=== PATIENT | male | born 1940 | race Caucasian/White ===

== ENCOUNTER 2017-07-02 22:32 | Inpatient (IN) | payer OTHER ==
[~2017-07-02] VITALS: Ht 172.7 cm; Wt 72.6 kg
--- NOTE | ~2017-07-02 | CNG ---
[facility] [place] [address] CYTO-NONGYN REPORT PROCEDURE Name: KEVIN CARVER Room #: 242-P ADM IN M.R.#: [id number] Admission: 07/03/17 Date of : 44 Discharge: Report #: [id number] Path Case #: [id number] CYTOPATHOLOGY REPORT COLLECTION DATE: 07/03/2017 RECEIVED DATE: 07/03/2017 SUBMITTING PHYS: Dr. Jacinto Salazar OTHER PHYS: Dr. Alfonso Dillard CLINICAL HISTORY: Cardio/Respiratory arrest, Pleural effusion. SPECIMEN(S) RECEIVED: A.Pleural fluid * * * * * * * * * * * * FINAL DIAGNOSIS: A. Pleural fluid: - No malignant epithelial cells identified. Occasional mesothelial cells and acute and chronic inflammatory cells, including occasional eosinophils and scattered lymphocytes, are present in a background of debris. PATHOLOGIST: Louisa Pereira M.D. REPORT ELECTRONICALLY SIGNED BY: Louisa Pereira M.D. DATE/TIME: 07/04/2017 11:21 * * * * * * * * * * * * GROSS PATHOLOGY: A. Pleural fluid: The specimen is submitted unfixed, labeled "Kevin Carver". Received by the Cytology Department is 35 mL of clear yellow fluid. One ThinPrep slide and a formalin fixed cell block were prepared. (clt 07.03.2017) FIRE LOSS PREVENTION ENGINEER(S): BERTHA Archer([facility]) INITIAL CPT CODE(S): A; 83459, 64023 Professional services performed by [facility] at [facility] [address], [place] [address] Technical services performed by [facility] at [address] [place] [address]., [address], [place] [address]. [facility] [address] [place] [address] CYTO-NONGYN REPORT PROCEDURE Name: KEVIN CARVER Room #: 242-P ADM IN M.R.#: [id number] Admission: 07/03/17 Date of : 44 Discharge: Report #: [id number] Path Case #: [id number] [place] [address] [address] [place] [address] PHONE: [phone] DIRECTOR: Srinivas Arzola M.D. * * * END OF REPORT * * *
--- NOTE | ~2017-07-02 | 2DMMODE ---
[facility] [address] [place] [address] 2 D/M-MODE ECHOCARDIOGRAM Name: KEVIN FITZGERALD Room #: 242-P ADM IN M.R.#: [id number] Admission: 07/03/17 Attend Phys: Alfonso Cardoza, Discharge: Date of : 44 Date of Service: 07/03/17 1209 Report #: [id number] THIS REPORT FOR: //name// APPROVED REPORT Study performed: 07/03/2017 10:24:00 EXAM: Comprehensive 2D, Doppler, and color-flow Echocardiogram Patient Location: ICU Room #: 242 Status: routine BSA: 1.86 HR: 71 bpm BP: 100/60 mmHg Other Information Study Quality: Fair Indications Congestive Heart Failure CVA/TIA Diabetes Hypertension/HDD S^P Cardiopulmonary arrest Echo Enhancing Agent Indication: Rule out Shunt Agent(s) / Amount(s) Used: Agitated Saline 7 cc 2D Dimensions LVEF(%): 20.04 (>50%) IVSd: 9.97 (7-11mm) LVOT Diam: 18.76 (18-24mm) LVDd: 42.57 mm PWd: 9.97 (7-11mm) Ascending Ao: 29.16 (22-36mm) LVDs: 38.74 (25-40mm) Aortic Root: 27.05 mm IVC: 21.00 mm Benoit's LVEF: 20.04 % Aortic Valve AoV Peak Shalom.: 0.95 m/s AO Peak Gr.: 3.59 mmHg LVOT Max P.02 mmHg LVOT Max V: 0.71 m/s TEDDY Vmax: 2.07 cm2 Mitral Valve [facility] [address] [place] [address] 2 D/M-MODE ECHOCARDIOGRAM Name: KEVIN FITZGERALD Room #: 242-P ADM IN ..#: [id number] Admission: 07/03/17 Attend Phys: Alfonso Cardoza, Discharge: Date of : 44 Date of Service: 07/03/17 1209 Report #: [id number] MV Decel. Time: 153.36 ms MV E Max Shalom.: 0.93 m/s Pulmonary Valve PV Peak Shalom.: 0.70 m/s PV Peak Gr.: 1.98 mmHg Tricuspid Valve TR Peak Shalom.: 3.40 m/s TR Peak Gr.: 46.18 mmHg PA Pressure: 56.00 mmHg Left Ventricle The left ventricle is normal size. Possible global hypokinesis of the left ventricle. There is normal left ventricular wall thickness. Very limited assessement of global and regional systolic function. Possible mild-moderate global dysfunction, although this could be artifactual due to inability to see endocardium. This study is not technically sufficient to allow evaluation of the LV diastolic function. Right Ventricle The right ventricle is normal size. The right ventricular systolic function is normal. Atria Left atrium is dilated. No shunting by contrast bubble injection Right atrium is dilated. Aortic Valve Aortic valve is mildly calcified. No aortic regurgitation is present. There is no aortic valvular stenosis. Mitral Valve Mild mitral annular calcification Mild mitral regurgitation. No evidence of mitral valve stenosis. Tricuspid Valve The tricuspid valve is normal in structure. There is mild tricuspid regurgitation. The right atrial pressure is estimated at mmHg. There is moderate pulmonary hypertension. Estimated PAP was 55 mmHg. Pulmonic Valve The pulmonary valve is normal in structure. Trace pulmonic regurgitation. [facility] [address] [address] 2 D/M-MODE ECHOCARDIOGRAM Name: KEVIN FITZGERALD Room #: 242-P [facility] IN .R.#: [id number] Admission: 07/03/17 Attend Phys: Alfonso Cardoza, Discharge: Date of : 44 Date of Service: 07/03/17 1209 Report #: [id number] Great Vessels The aortic root is normal in size. IVC is dilated and collapses <50% with inspiration. Pericardium Trace pericardial effusion. <Conclusion> Limited study Very limited assessement of global and regional systolic function. Possible mild-moderate global dysfunction, although this could be artifactual due to inability to see endocardium. Both atria mildly enlarged No shunting by contrast bubble injection Aortic valve is mildly sclerotic. No aortic regurgitation or stenosis. Mild mitral annular calcification. Mild mitral regurgitation. Pulmonary artery pressure of 55mmHg Trace pericardial effusion. Pleural effusions seen <ELECTRONICALLY SIGNED> By: Amarjit Morel MD, [facility] 07/03/171208 08 08 Amarjit Morel MD, [facility] /INF
--- NOTE | ~2017-07-02 | EKG ---
[address] [place] [address] ELECTROCARDIOGRAM REPORT Name: KEVIN FITZGERALD Room #: 242-P ADM IN M.R.#: [id number] Admission: 07/03/17 Attend Phys: Alfonso Cardoza DO Discharge: Date of : 44 Report #: [id number] THIS REPORT FOR: //name// [facility] ED Test Date: 2017-07-02 Test Time: 22:42:19 Pat Name: KEVIN FITZGERALD Department: Room: 242 Gender: M [employer] Tester: MIKHAIL : 1940 Requested By: Hortencia Moreno Order Number: [id number] MD: Amarjit Morel Measurements Intervals Rosine Rate: 62 P: NE: QRS: 24 QRSD: 96 T: QT: 465 QTc: 473 Interpretive Statements Possible sinus bradycardia with atrial premature complexes Low voltage, extremity leads Borderline repolarization abnormality No previous ECG available for comparison Electronically Signed On 07-03-2017 8:30:44 CDT by Amarjit Morel [email or web address] <ELECTRONICALLY SIGNED> By: Amarjit Morel MD, [facility] 07/03/17 0830 2242 41 Amarjit Morel MD, FACC /EPI
--- NOTE | ~2017-07-02 | HC ---
[facility] [place] [address] CONSULTATION Name: KEVIN FITZGERALD Room #: 242-P [facility] IN M.R.#: [id number] Admission: 07/03/17 Attend Phys: Viry Garibay Discharge: Date of : 44 Report #: [id number] THIS REPORT FOR: //name// CC: Alfonso Dillard REFERRAL PHYSICIAN: Alfonso Cardoza DO REASON FOR REFERRAL: Cardiopulmonary arrest. HISTORY OF PRESENT ILLNESS: The patient is a 77-year-old white male who was transferred from [facility] following a cardiac arrest. A pulmonary consultation was requested. According to records, the patient has been at [facility] for treatment of MRSA bacteremia. The patient also has decubitus wounds along with apparent osteomyelitis. The patient had been on vancomycin and meropenem. [facility]. According to records, the patient was found to be unresponsive last evening. Paramedics were called. The patient was brought to the emergency room. He was intubated to control the airways. According to Dr. Hortencia Moreno, the patient did not have significant neurologic response during the intubation. He did not require any sedation. Chest x-ray showed bilateral pleural effusions. CT chest was negative for pulmonary embolus. Moderate bilateral pleural effusion is noted with possible left lower lobe infiltrates. CT head was grossly unremarkable. Presently, the patient is obtunded, unresponsive. His eyes are open with eyes deviated to the right upper quadrant. PAST MEDICAL HISTORY: As mentioned above. Record also shows a history of coronary artery disease with myocardial infarction in April 2017, hypertension, hyperlipidemia, diabetes mellitus type 2, stage III sacral wound, urinary retention, MRSA bacteremia with sepsis. ALLERGIES: To IODINE, reactions unspecified. MEDICATIONS: From the facility are reviewed. This include iron supplements, vitamin C, Bactroban, Suki aspirin, Lipitor, Coreg, Plavix, Levemir, magnesium sulfate, meropenem 500 mg IV q.6 hours, multivitamins, Protonix, MiraLax, Xarelto, Senna, Flomax, vancomycin 750 mg IV daily, nebulized albuterol, guaifenesin, and ketorolac. FAMILY HISTORY: Unknown. [facility] [address] [place] [address] CONSULTATION Name: KEVIN FITZGERALD Room #: 242-P [facility] IN M.R.#: [id number] Admission: 07/03/17 Attend Phys: Viry Garibay Discharge: Date of : 44 Report #: [id number] SOCIAL HISTORY: Unknown. REVIEW OF SYSTEMS: Unable to be obtained given current neurologic changes. PHYSICAL EXAMINATION: GENERAL: As mentioned above, he is unresponsive to deep sternal rub. His eyes are deviated to the right upper quadrant. VITAL SIGNS: Temperature is 96.5 degrees Fahrenheit, pulse is 62, respiratory rate is 20, blood pressure was as low as 70 mmHg systolic in the emergency room. Currently, 75 mmHg and saturation 100%. HEENT: Normocephalic, atraumatic. Pupils again deviated to the right upper quadrant bilaterally. He is orally intubated. NECK: Supple without any lymphadenopathy or thyromegaly. CHEST: Breath sounds are clear anteriorly. CARDIOVASCULAR: Irregular. No obvious murmurs or gallops. Pulses are 2+/4+ bilaterally. ABDOMEN: Soft, nontender, no organomegaly or masses felt. GENITOURINARY: Deferred. RECTAL: Deferred. EXTREMITIES: No cyanosis, clubbing, or edema. LABORATORY DATA: Chest x-ray again shows moderate bilateral pleural effusion confirmed by CT chest angiogram. A pulmonary embolus was not noted. CT head again shows no acute changes. Procalcitonin is 1.34. BNP is elevated. Sodium 143, potassium 3.6, chloride 113, CO2 is 20, BUN is 37, creatinine is 1.1, it was 1.3 on admission; and glucose 129. Liver function profile mildly elevated. Albumin 1.5. WBC 8100, hemoglobin 7.3, platelets are normal, no evidence of significant bandemia. MCV and MCH are normal. Arterial blood gas revealed pH 7.39, pCO2 of 37, pO2 of 96 on FIO2 of 60%. IMPRESSION: 1. Cardiopulmonary arrest in this 77-year-old white male. It is unclear to the duration of time being down. Etiology is unclear at this time. The patient was hypotensive on arrival to the ER. He has been treated for methicillin-resistant Staphylococcus aureus sepsis with bacteremia along with sacral wounds and possible osteomyelitis. Etiology may be related to ongoing sepsis leading to hypotension than cardiopulmonary arrest. Unclear if the patient has cerebrovascular accident or anoxic brain injury. 2. Acute hypoxic respiratory failure due to above processes. 3. Encephalopathy, presently the patient is obtunded. Concerns for anoxic or hypoxic brain injury. 4. Possible left lower lobe infiltrate, moderate bilateral pleural effusion. Bilateral effusion likely suggests heart failure or other transudative processes. However, with elevated Procalcitonin, cannot rule out nosocomial [facility] [address] [place] [address] CONSULTATION Name: KEVIN FITZGERALD Room #: 242-P [facility] IN M.R.#: [id number] Admission: 07/03/17 Attend Phys: Viry Garibay Discharge: Date of : 44 Report #: [id number] infections. 5. Recent diagnosis of methicillin-resistant Staphylococcus aureus sepsis, bacteremia, sacral wound with ? osteomyelitis. 6. Coronary artery disease with myocardial infarction in April 2017. 7. Diabetes mellitus type 2. 8. Anemia. 9. Severe protein-calorie malnutrition. 10. Acute kidney injury due to hypotension leading to acute tubular necrosis. 11. Hypotension, likely due to severe septic shock, much improved with IV fluids. RECOMMENDATION: We will continue mechanical ventilation. Given the clinical presentation, we will proceed with diagnostic thoracentesis especially on the left to rule out complicated pleural effusion including empyema. Continue broad-spectrum antibiotics for his recent MRSA bacteremia along with possible pneumonia. Agree with neurology consultation regarding encephalopathy. Concerns for profound anoxic brain injury. Because we do not have a rhythm, I am not certain if the patient qualifies for hypothermic protocol at this time. Overnight, the patient has urine output. It has improved with a low dose Lasix along with IV fluids. His hypotension is likely related to severe sepsis along with intravascular volume depletion. Continue volume replacement for now. Note that renal function has improved. Continue aggressive support. If neurologic status does not improve over the next 72 hours or so, may need to address medical directive. Thank you for this consultation. <ELECTRONICALLY SIGNED> By: Jacinto Salazar MD 07/05/17 1233 0926 1142 Jacinto Salazar MD /nt
[2017-07-02 22:35] VITALS: BP 99/65
[2017-07-02 22:57] LABS: ABSOLUTE NEUTROPHILS 6.4 thou/uL (1.4-8.2); BASOPHILS 0.6 % (0.0-2.0); HEMATOCRIT 21.4 % (42.0-52.0); HEMOGLOBIN 7.3 gm/dL (14.0-18.0); LYMPHOCYTES 12.2 % (24.0-44.0); MCH 30.5 pg (26.0-34.0); MCHC 33.9 g/dL (28.0-37.0); MCV 89.9 fL (80.0-100.0); MONOCYTES 7.8 % (1.0-8.0); PLATELET COUNT 320 thou/uL (150-400); POLYS 78.4 % (36.0-66.0); RBC 2.38 mil/uL (4.50-6.00); RDW 16.1 % (10.5-14.5); WBC 8.1 thou/uL (4.0-11.0)
[2017-07-02 22:59] LABS: MANUAL DIFF NO
[2017-07-02 23:00] LABS: CALCIUM 9.1 mg/dL (8.5-10.1); CREATININE 1.3 mg/dL (0.7-1.3); POTASSIUM 4.6 mmol/L (3.5-5.1)
[2017-07-02] MEDS ORDERED: IRON325 PO (23:08)
[2017-07-02 23:09] LABS: TROPONIN-I 0.1 ng/mL (<0.04-0.07)
[2017-07-02] MEDS ORDERED: BACTROBAN15 GM TOP (23:09)
[2017-07-02] MEDS ORDERED: VITAMINC500 PO (23:09)
[2017-07-02] MEDS ORDERED: LIPITOR40 MG PO (23:10)
[2017-07-02] MEDS ORDERED: PLAVIX 75 MG TA75 M1 PO (23:10)
[2017-07-02] MEDS ORDERED: BAYER CHEWABLE81 MG PO (23:10)
[2017-07-02] MEDS ORDERED: CARVEDILOL3.125 MG PO (23:10)
[2017-07-02] MEDS ORDERED: SANTYL OINTMENT30 G1 TOP (23:11)
[2017-07-02] MEDS ORDERED: LEVEMIR FL100 UNIT/2 SUBQ (23:11)
[2017-07-02] MEDS ORDERED: MAGNESIUM400 MG PO (23:12)
[2017-07-02] MEDS ORDERED: CENTRUM SILVER1 EAC2 PO (23:13)
[2017-07-02] MEDS ORDERED: MEROPENEM500 MG IV (23:13)
[2017-07-02] MEDS ORDERED: PROTONIX40 M1 PO (23:13)
[2017-07-02] MEDS ORDERED: SENNA8.6 MG PO (23:14)
[2017-07-02] MEDS ORDERED: MIRALAX17 GM PO (23:14)
[2017-07-02] MEDS ORDERED: XARELTO20 MG PO (23:14)
[2017-07-02] MEDS ORDERED: FLOMAX0.4 MG PO (23:15)
[2017-07-02] MEDS ORDERED: VANCOMYCIN750 MG/151 IV (23:15)
[2017-07-02] MEDS ORDERED: TYLENOL325 MG PO (23:16)
[2017-07-02] MEDS ORDERED: IPRATROPIUM INH (23:17)
[2017-07-02] MEDS ORDERED: ROBITUSSIN100 MG/53 PO (23:17)
[2017-07-02] MEDS ORDERED: ALBUTEROL INH (23:17)
[2017-07-02] MEDS ORDERED: KETOROLAC15 MG/1 ML IV (23:18)
[2017-07-02 23:25] LABS: ABG COMMENT A/C MODE; ABG SAMPLE TYPE ARTERIAL; BE(vivo) -2.1 mmol/L (-2 to +3); HCO3 22.5 mmol/L (22.0-26.0); LACTATE 2.74 mmol/L (0.5-2.0); O2Hb 96.1 % (92.0-98.0); PCO2 37.8 mmHg (35.0-45.0); PO2 96.3 mmHg (80.0-100.0); STICK SITE R.RADIAL; TIDAL VOLUME 500 ml; pH 7.393 (7.360-7.450); sO2 97.3 % (92.0-98.0); tCO2 23.7 mmol/L (24.0-30.0)
[2017-07-03] VITALS (49 sets, daily range): BP systolic 70–142; BP diastolic 42–94
[2017-07-03 01:41] LABS: APTT 39.4 Seconds (24.5-32.8); INR 1.3; PROTIME 13.2 Seconds (9.3-11.4)
[2017-07-03 02:41] LABS: URINE BILIRUBIN NEGATIVE (Negative); URINE BLOOD 3+ (Negative); URINE COLOR YELLOW; URINE GLUCOSE-RANDOM* NEGATIVE (Negative); URINE KETONES TRACE (Negative); URINE NITRITE NEGATIVE (Negative); URINE PROTEIN (DIPSTICK) 3+ (Negative); URINE SPECIFIC GRAVITY >= 1.030 (1.003-1.035); URINE UROBILINOGEN 0.2 E.U./dl (0.2-1.0)
[2017-07-03 02:56] LABS: HYALINE CASTS 0-3 Few /LPF (None Seen); SQUAMOUS 0-3 Few /LPF (0-3); URINE WBC >25 Many /HPF (0-5)
[2017-07-03 02:57] LABS: AMORPHOUS URATES Moderate /LPF (None Seen); CRYSTALS None Seen /LPF (None Seen); TRANSITIONAL EPITHEL CELL 0-3 Few /LPF (None Seen); WBC CLUMPS Few (None Seen); YEAST Present (None Seen)
[2017-07-03 03:34] LABS: ABG SAMPLE TYPE VENOUS; BE(vivo) -2.7 mmol/L (-2 to +3); HCO3 23.4 mmol/L (22.0-26.0); LACTATE 2.27 mmol/L (0.5-2.0); PCO2 VENOUS 46.9 mmHg (41.0-51.0); sO2 VENOUS 40.1 % (65.0-85.0); tCO2 24.8 mmol/L (24.0-30.0)
[2017-07-03 03:35] LABS: O2Hb VENOUS 33.6 (65.0-85.0); STICK SITE LINE; TIDAL VOLUME 500 ml
[2017-07-03 03:44] LABS: HEMATOCRIT 21.4 % (42.0-52.0); RBC 2.36 mil/uL (4.50-6.00)
[2017-07-03 03:47] LABS: ABG SAMPLE TYPE VENOUS; BE(vivo) -4.5 mmol/L (-2 to +3); HCO3 21.1 mmol/L (22.0-26.0); LACTATE 2.22 mmol/L (0.5-2.0); O2(CT) 4.3 mL/dL (15.0-23.0); PCO2 VENOUS 41.1 mmHg (41.0-51.0); PO2 VENOUS 25.8 mmHg (35.0-45.0); sO2 VENOUS 43.2 % (65.0-85.0); tCO2 22.4 mmol/L (24.0-30.0)
[2017-07-03 03:48] LABS: MCH 29.8 pg (26.0-34.0); MCHC 32.9 g/dL (28.0-37.0); MCV 90.6 fL (80.0-100.0); PLATELET COUNT 283 thou/uL (150-400); RDW 16.3 % (10.5-14.5)
[2017-07-03 03:48] LABS: O2Hb VENOUS 36.4 (65.0-85.0); STICK SITE LINE
[2017-07-03 03:49] LABS: ABG COMMENT VBG SEPSIS PROTOCOL; TIDAL VOLUME 500 ml
[2017-07-03 03:51] LABS: MANUAL DIFF YES
[2017-07-03 03:57] LABS: FIBRINOGEN 293.3 mg/dL (210-360); PROTIME 21.4 Seconds (9.3-11.4)
[2017-07-03 04:00] LABS: ALBUMIN 1.5 g/dL (3.4-5.0); CREATININE 0.9 mg/dL (0.7-1.3); POTASSIUM 3.7 mmol/L (3.5-5.1); TOTAL BILIRUBIN 0.4 mg/dL (<0.1-1.0)
[2017-07-03 04:01] LABS: CALCIUM 6.3 mg/dL (8.5-10.1)
[2017-07-03 04:06] LABS: APTT 71.7 Seconds (24.5-32.8); INR 2.1
[2017-07-03 05:08] LABS: ABG SAMPLE TYPE VENOUS; BE(vivo) -6.2 mmol/L (-2 to +3); HCO3 19.6 mmol/L (22.0-26.0); LACTATE 2.27 mmol/L (0.5-2.0); O2(CT) 4.6 mL/dL (15.0-23.0); PO2 VENOUS 27.7 mmHg (35.0-45.0); sO2 VENOUS 46.4 % (65.0-85.0); tCO2 20.8 mmol/L (24.0-30.0)
[2017-07-03 05:09] LABS: O2Hb VENOUS 38.8 (65.0-85.0); STICK SITE LINE
[2017-07-03 05:10] LABS: ABSOLUTE NEUTROPHILS 9.7 thou/uL (1.4-8.2); ANISOCYTOSIS 1+; NUCLEATED RBCS 1 /100WBC; TOTAL CELL COUNT 100
[2017-07-03 06:49] LABS: BE(vivo) -2.5 mmol/L (-2 to +3); HCO3 22.5 mmol/L (22.0-26.0); LACTATE 3.03 mmol/L (0.5-2.0); O2Hb VENOUS 42.2 (65.0-85.0); PCO2 VENOUS 39.8 mmHg (41.0-51.0); PO2 VENOUS 28.2 mmHg (35.0-45.0); sO2 VENOUS 51.5 % (65.0-85.0); tCO2 23.8 mmol/L (24.0-30.0)
[2017-07-03 06:50] LABS: ABG SAMPLE TYPE VENOUS; STICK SITE LINE; TIDAL VOLUME 500 ml
[2017-07-03 07:59] LABS: ABG SAMPLE TYPE VENOUS; BE(vivo) -6.6 mmol/L (-2 to +3); HCO3 17.8 mmol/L (22.0-26.0); LACTATE 2.07 mmol/L (0.5-2.0); O2(CT) 4.3 mL/dL (15.0-23.0); PCO2 VENOUS 29.9 mmHg (41.0-51.0); PO2 VENOUS 32.7 mmHg (35.0-45.0); sO2 VENOUS 63.5 % (65.0-85.0); tCO2 18.7 mmol/L (24.0-30.0)
[2017-07-03 08:00] LABS: O2Hb VENOUS 51.6 (65.0-85.0); STICK SITE LINE
[2017-07-03 08:36] LABS: CALCIUM 7.2 mg/dL (8.5-10.1); CREATININE 1.1 mg/dL (0.7-1.3); POTASSIUM 3.6 mmol/L (3.5-5.1)
[2017-07-03 08:42] LABS: INR 1.5; PROTIME 15.4 Seconds (9.3-11.4)
[2017-07-03 09:22] LABS: ABG SAMPLE TYPE VENOUS; BE(vivo) -1.6 mmol/L (-2 to +3); HCO3 22.9 mmol/L (22.0-26.0); LACTATE 2.78 mmol/L (0.5-2.0); O2(CT) 4.8 mL/dL (15.0-23.0); PCO2 VENOUS 37.6 mmHg (41.0-51.0); PO2 VENOUS 26.4 mmHg (35.0-45.0); STICK SITE LINE; sO2 VENOUS 49.3 % (65.0-85.0); tCO2 24.1 mmol/L (24.0-30.0)
[2017-07-03 09:23] LABS: TIDAL VOLUME 500 ml
[2017-07-03 11:00] LABS: CALCIUM 7.8 mg/dL (8.5-10.1); CREATININE 1.1 mg/dL (0.7-1.3); POTASSIUM 3.6 mmol/L (3.5-5.1)
[2017-07-03 11:02] LABS: INR 1.7; PROTIME 17.4 Seconds (9.3-11.4)
[2017-07-03 11:10] LABS: APTT 57.4 Seconds (24.5-32.8)
[2017-07-03 15:40] LABS: BF NUCLEATED CELLS 185; BF RBC 405
[2017-07-03 16:30] LABS: CLARITY CLEAR; COLOR YELLOW; TOTAL VOLUME 60 mL
[2017-07-03 16:34] LABS: BF MACROPHAGE 29; BF NEUTROPHILS 13
[2017-07-04] VITALS (46 sets, daily range): BP systolic 84–134; BP diastolic 44–101
[2017-07-04 00:06] LABS: MANUAL DIFF YES
[2017-07-04 00:53] LABS: CALCIUM 7.7 mg/dL (8.5-10.1); CREATININE 1.2 mg/dL (0.7-1.3); POTASSIUM 4.1 mmol/L (3.5-5.1)
[2017-07-04 00:59] LABS: ALBUMIN 1.8 g/dL (3.4-5.0); TOTAL BILIRUBIN 0.4 mg/dL (<0.1-1.0); TOTAL PROTEIN 6.1 g/dL (6.4-8.2)
[2017-07-04 05:26] LABS: ABG SAMPLE TYPE ARTERIAL; BE(vivo) -6.3 mmol/L (-2 to +3); HCO3 16.9 mmol/L (22.0-26.0); LACTATE 2.54 mmol/L (0.5-2.0); O2(CT) 13.8 mL/dL (15.0-23.0); O2Hb 98.7 % (92.0-98.0); PCO2 26.1 mmHg (35.0-45.0); pH 7.429 (7.360-7.450); sO2 99.2 % (92.0-98.0); tCO2 17.7 mmol/L (24.0-30.0)
[2017-07-04 05:27] LABS: STICK SITE R.RADIAL; TIDAL VOLUME 500 ml
[2017-07-04 05:44] LABS: HEMATOCRIT 20.8 % (42.0-52.0); HEMOGLOBIN 6.7 gm/dL (14.0-18.0); MANUAL DIFF NO; MCH 29.9 pg (26.0-34.0); MCHC 32.2 % (28.0-37.0); MCV 92.8 fL (80.0-100.0); RBC 2.24 mil/uL (4.50-6.00); WBC 10.2 thou/uL (4.0-11.0)
[2017-07-04 05:45] LABS: ABSOLUTE NEUTROPHILS 8.6 thou/uL (1.4-8.2); BASOPHILS 0.4 % (0.0-2.0); MONOCYTES 6.1 % (1.0-8.0); PLATELET COUNT 295 thou/uL (150-400); POLYS 84.5 % (36.0-66.0); RDW 16.7 % (10.5-14.5)
[2017-07-04 08:57] LABS: CALCIUM 8.6 mg/dL (8.5-10.1); CREATININE 1.5 mg/dL (0.7-1.3); DIRECT BILIRUBIN 0.1 mg/dL (<0.1-0.3); POTASSIUM 4.3 mmol/L (3.5-5.1); TOTAL BILIRUBIN 0.3 mg/dL (<0.1-1.0); TOTAL PROTEIN 6.7 g/dL (6.4-8.2)
[2017-07-04 14:10] LABS: BODY FLUID ALBUMIN 0.9 g/dL (()); BODY FLUID GLUCOSE 176 mg/dL (()); BODY FLUID LDH 57 IU/L (()); BODY FLUID PROTEIN 2.1 g/dL (())
[2017-07-04 20:17] LABS: HEMATOCRIT 21.3 % (42.0-52.0)
[2017-07-05] VITALS (43 sets, daily range): BP systolic 79–129; BP diastolic 38–86
[2017-07-05 04:27] LABS: HEMATOCRIT 21.8 % (42.0-52.0); HEMOGLOBIN 7.2 gm/dL (14.0-18.0); MCH 29.9 pg (26.0-34.0); MCV 90.6 fL (80.0-100.0); RBC 2.41 mil/uL (4.50-6.00); RDW 16.9 % (10.5-14.5)
[2017-07-05 04:59] LABS: CALCIUM 8.5 mg/dL (8.5-10.1); CREATININE 1.2 mg/dL (0.7-1.3); POTASSIUM 3.9 mmol/L (3.5-5.1)
[2017-07-05 05:22] LABS: ABG SAMPLE TYPE ARTERIAL; BE(vivo) -5.3 mmol/L (-2 to +3); HCO3 17.5 mmol/L (22.0-26.0); LACTATE 1.63 mmol/L (0.5-2.0); O2(CT) 11.3 mL/dL (15.0-23.0); O2Hb 98.3 % (92.0-98.0); PCO2 24.6 mmHg (35.0-45.0); PO2 148.4 mmHg (80.0-100.0); pH 7.471 (7.360-7.450); sO2 99.1 % (92.0-98.0); tCO2 18.3 mmol/L (24.0-30.0)
[2017-07-05 05:23] LABS: FIO2 50 %; STICK SITE R.RADIAL
[2017-07-05 05:24] LABS: TIDAL VOLUME 500 ml
[2017-07-05 07:10] LABS: CALCIUM 8.5 mg/dL (8.5-10.1); CREATININE 1.2 mg/dL (0.7-1.3)
[2017-07-05 07:12] LABS: GLYCOHEMOGLOBIN (HGB A1C) 8.1 % (4.8-5.6)
[2017-07-05 21:09] LABS: GLYCOHEMOGLOBIN (HGB A1C) 8.1 % (4.8-5.6)
[2017-07-06] VITALS (32 sets, daily range): BP systolic 97–123; BP diastolic 51–109
[2017-07-07] VITALS (20 sets, daily range): BP systolic 92–135; BP diastolic 53–87
== END 2017-07-07 21:03 | DRG 207 ==
LOC: ER 22:32 → ICU 07-03 00:33 → EROBS 07-03 00:33 → ICU 07-03 01:15
PROVIDERS: Emergency Medicine; Family Medicine; Internal Medicine Pulmonary Disease; Psychiatry & Neurology Neurology; Psychiatry & Neurology Neuromuscular Medicine
PROC: 5A1955Z Respiratory Ventilation, Greater than 96 Consecutive Hours (ICD-10-PCS; principal; 2017-07-02)
PROC: 0BH17EZ Insertion of Endotracheal Airway into Trachea, Via Natural or Artificial Opening (ICD-10-PCS; principal; 2017-07-02)
PROC: 0W9B3ZX Drainage of Left Pleural Cavity, Percutaneous Approach, Diagnostic (ICD-10-PCS; 2017-07-03)
DX: J96.00 Acute respiratory failure, unspecified whether with hypoxia or hypercapnia (principal); L89.153 Pressure ulcer of sacral region, stage 3; G93.40 Encephalopathy, unspecified; E43 Unspecified severe protein-calorie malnutrition; N17.0 Acute kidney failure with tubular necrosis; J90 Pleural effusion, not elsewhere classified; E87.2 Acidosis; G93.1 Anoxic brain damage, not elsewhere classified; I95.9 Hypotension, unspecified; I46.9 Cardiac arrest, cause unspecified; I25.10 Atherosclerotic heart disease of native coronary artery without angina pectoris; I10 Essential (primary) hypertension; E78.5 Hyperlipidemia, unspecified; E11.9 Type 2 diabetes mellitus without complications; D64.9 Anemia, unspecified; G40.909 Epilepsy, unspecified, not intractable, without status epilepticus; Z91.041 Radiographic dye allergy status; I25.2 Old myocardial infarction; Z68.24 Body mass index [BMI] 24.0-24.9, adult
CPT/HCPCS: 10078